=== PATIENT | male | born 1955 | race Caucasian/White ===

== ENCOUNTER 2020-01-25 01:32 | Outpatient (CLI) | payer BC, SELFPAY ==
--- NOTE | 2020-01-25 | DI.MRI_ITS ---
EXAM: MR LUMBAR SPINE WO CLINICAL HISTORY: LOW BACK PAIN, M54.5. TECHNIQUE: Multiplanar multisequence MRI of the Lumbar spine was performed. COMPARISON: No exams were available for comparison FINDINGS: Bones: The last intervertebral disc space is designated the L5/S1 level for the numbering purpose of this examination. The vertebral body heights are well maintained. Alignment is satisfactory. The si gnal characteristics are unremarkable. Cord: The conus tip ends at the T12 level. It is of normal size and signal intensity. T12-L1: No disc herniations or bulges are present. No central spinal canal or neural foraminal stenos is. L1-2: There is a mild diffuse disc bulge. No central spinal canal or neural foraminal stenosis.Endpl ate osteophytes are present. L2-3: No disc herniations or bulges are present. No central spinal canal or neural foraminal stenosis . L3-4: There is a mild diffuse disc bulge. There is mild narrowing of the central spinal canal.No sig nificant neural foraminal stenosis is present. L4-5: There is a diffuse disc bulge. There are hypertrophic changes of the facets and the flavum. T hese all contribute to cause moderately severe central spinal canal stenosis. Mild bilateral neural foraminal stenosis is present. L5-S1: No disc herniations or bulges are present. Degenerative changes of the facets are present.Ther e is mild narrowing of the left neural foramen. No central spinal canal or right neural foraminal st enosis is seen. Soft tissues: The visualized SI joints and sacrum are well maintained. The paraspinal soft tissues ar e unremarkable. IMPRESSION: Multilevel degenerative changes in the lumbar spine. The findings are most marked at the L4-5 disc l evel. DATA REPOSITORY:
== END 2020-01-25 01:52 ==
PROVIDERS: PCP Physician Assistant; Visit Provider Physician Assistant
DX: M54.5 Low back pain (principal); M51.27 Other intervertebral disc displacement, lumbosacral region; M51.37 Other intervertebral disc degeneration, lumbosacral region
CPT/HCPCS: 72148

== ENCOUNTER 2020-06-21 15:10 | Outpatient (REF) | payer BC, SELFPAY ==
[2020-06-26 01:22] LABS: Patient Race White; SARS-CoV-2 Specimen Source Nasal
[2020-06-26 09:46] LABS: SARS-CoV-2 RNA Detected (Undetected)
== END 2020-06-21 15:30 ==
LOC: NCHCN 15:10
PROVIDERS: PCP Physician Assistant; Visit Provider Nurse Practitioner Family
DX: Z20.828 Contact with and (suspected) exposure to other viral communicable diseases (principal)
CPT/HCPCS: U0003

== ENCOUNTER 2021-03-21 15:02 | Outpatient (CLI) | payer BC, SELFPAY ==
--- NOTE | 2021-03-21 | DI.RAD_ITS ---
Exam(s) XR CHEST 2V PA LATERAL EXAM: XR CHEST 2V PA LATERAL CLINICAL HISTORY: COUGH R05 TECHNIQUE: COMPARISON: No exams were available for comparison FINDINGS: Heart is at the upper limits of normal in size. Lungs appear generally clear. No pleural effusion s een. IMPRESSION: No evidence of acute process. RADIATION DOSE DELIVERED: Total DLP
== END 2021-03-21 15:22 ==
PROVIDERS: PCP Physician Assistant; Visit Provider Physician Assistant Medical
DX: R05 Cough (principal)
CPT/HCPCS: 71046

== ENCOUNTER 2021-03-21 15:12 | Outpatient (REF) | payer BC, SELFPAY ==
[2021-03-23 11:08] LABS: COVID-19 RT-PCR UVMMC Result Negative (Negative)
== END 2021-03-21 15:13 | disposition home or self-care (01) ==
LOC: LBN 15:12
PROVIDERS: PCP Physician Assistant; Visit Provider Physician Assistant Medical
DX: Z20.822 Contact with and (suspected) exposure to COVID-19 (principal); R05 Cough
CPT/HCPCS: U0003

== ENCOUNTER 2021-10-13 10:43 | Outpatient (REF) | payer BC, SELFPAY ==
[2021-10-13 20:00] LABS: Abs Immature Grans 0.03 10^3/uL (0.0-0.06); Absolute Basophil Count 0.06 10^3/uL (0.0-0.2); Absolute Eosinophil Count 0.08 10^3/uL (0.0-0.7); Absolute Monocyte Count 0.68 10^3/uL (0.1-0.8); Basophils % 0.5; Eosinophils % 0.7; HCT 51.3 % (40.0-50.0); HGB 16.4 g/dL (13.5-17.5); Immature Grans % 0.3; Lymphocytes % 15.4; MCH 32.9 pg (27.0-33.0); MCV 102.8 fL (80-95); MPV 11.9 fL (8.0-11.0); Monocytes % 6.2; Neutrophils % 76.9; Nucleated RBC 0 %; Platelet Count 228 10^3/uL (130-400); RBC 4.99 10^6/uL (4.36-5.78); RDW 13.6 % (11.8-14.1); RDW-SD 51.9 fL; WBC 11.01 10^3/uL (4.4-10.8)
[2021-10-13 20:06] LABS: Absolute Neutrophil Count 8.47 10^3/uL (1.2-6.7)
[2021-10-13 20:13] LABS: Anion Gap 11.9 mmol/L (3-11); BUN 13 mg/dL (7-18); CO2 25.1 mmol/L (21.0-32.0); Calcium 9.2 mg/dL (8.5-10.1); Chloride 104 mmol/L (98-107); Glucose 97 mg/dL (74-106); Potassium 4.6 mmol/L (3.5-5.1); Sodium 141 mmol/L (136-145)
== END 2021-10-13 10:44 | disposition home or self-care (01) ==
LOC: NCHCN 10:43
PROVIDERS: PCP Physician Assistant; Visit Provider Orthopaedic Surgery Orthopaedic Surgery of the Spine
DX: M48.062 Spinal stenosis, lumbar region with neurogenic claudication (principal)
CPT/HCPCS: 80048; 85025

== ENCOUNTER 2022-05-07 11:44 | Outpatient (CLI) | payer OTHER, SELFPAY ==
--- NOTE | 2022-05-07 11:31 | DI.RAD_ITS ---
Exam(s) XR HIP RT COMPLETE AP PELVIS EXAM: XR HIP RT COMPLETE AP PELVIS INDICATION: pain in hip. COMPARISON: No exams were available for comparison TECHNIQUE: 2D digital imaging was performed. Two views. FINDINGS: Moderate to severe narrowing of both superior hip joint spaces. There is spurring of both acetabula as well as from the margins of both femoral heads. IMPRESSION: Severe degenerative changes of both hips. DATA REPOSITORY: RADIATION DOSE DELIVERED:
--- NOTE | 2022-05-07 11:35 | DI.RAD_ITS ---
Exam(s) XR KNEE RT 3V AP,LAT,MADISON EXAM: XR KNEE RT 3V AP,LAT,MADISON CLINICAL HISTORY: pain in knee. TECHNIQUE: 2D digital imaging was performed. Three views. COMPARISON: No exams were available for comparison FINDINGS: BONES: No acute fracture is present. No bony destructive lesion is seen. JOINTS: Marked narrowing of the medial femoral tibial joint causing varus angulation. Mild to modera te periarticular spurring. Spurring also noted at the patellofemoral joint.. No joint effusion is s een. SOFT TISSUE: Normal. IMPRESSION: Severe degenerative changes of the medial femoral tibial joint. DATA REPOSITORY: RADIATION DOSE DELIVERED:
== END 2022-05-07 11:45 | disposition home or self-care (01) ==
LOC: DIORS 11:44
PROVIDERS: PCP Physician Assistant; Referring Provider Physician Assistant; Visit Provider Physician Assistant Surgical
DX: M16.0 Bilateral primary osteoarthritis of hip (principal); M17.11 Unilateral primary osteoarthritis, right knee
CPT/HCPCS: 73562; 73502

== ENCOUNTER 2022-06-08 08:45 | Outpatient (CLI) | payer OTHER, SELFPAY ==
--- NOTE | 2022-06-08 08:45 | RT.EKG_ITS ---
APPROVED REPORT Exam: Resting ECG Reason for Exam: afib Patient Location: O HR:80 bpm ECG Measurements Heart Rate 80 AXIS ME [id number] P [id number] QRSd 93 QRS 42 QT 367 T -6 QTc 424 Conclusion Atrial fibrillation...V-rate 68- 94, irreg A-activity Poor R wave progression Borderline T abnormalities, inferior leads...T flat/neg, II III aVF
== END 2022-06-08 08:46 | disposition home or self-care (01) ==
LOC: DI.CARD 08:46
PROVIDERS: PCP Physician Assistant; Visit Provider Internal Medicine Cardiovascular Disease
DX: I25.10 Atherosclerotic heart disease of native coronary artery without angina pectoris (principal); I48.91 Unspecified atrial fibrillation
CPT/HCPCS: 93010

== ENCOUNTER 2022-06-18 03:04 | Outpatient (CLI) | payer OTHER, SELFPAY ==
[2022-06-18 11:30] LABS: HCT 49.5 % (40.0-50.0); HGB 16.2 g/dL (13.5-17.5); MCH 33.4 pg (27.0-33.0); MCHC 32.7 % (32.0-36.0); MCV 102 fL (80-95); MPV 10.8 fL (8.0-11.0); Platelet Count 200 10^3/uL (130-400); RBC 4.85 10^6/uL (4.36-5.78); RDW 13.8 % (11.8-14.1); RDW-SD 52.9 fL; WBC 7.11 10^3/uL (4.4-10.8)
[2022-06-18 12:04] LABS: Anion Gap 9.5 mmol/L (3-11); BUN 11 mg/dL (7-18); CO2 25.5 mmol/L (21.0-32.0); CREATININE 1.1 mg/dL (0.70-1.30); Calcium 9.2 mg/dL (8.5-10.1); Chloride 106 mmol/L (98-107); Estimated GFR 74.96 (mL/min/1.73m2); Glucose 111 mg/dL (74-106); Potassium 5.3 mmol/L (3.5-5.1); Sodium 141 mmol/L (136-145)
== END 2022-06-18 03:05 | disposition home or self-care (01) ==
LOC: LBO 03:04
PROVIDERS: PCP Physician Assistant; Visit Provider Student in an Organized Health Care Education/Training Program
DX: M16.11 Unilateral primary osteoarthritis, right hip (principal); Z01.818 Encounter for other preprocedural examination
CPT/HCPCS: 36415; 80048; 85027

== ENCOUNTER 2022-06-23 08:30 | Day surgery (SDC) | payer OTHER, SELFPAY ==
[2022-06-23] VITALS (13 sets, daily range): BP systolic 77–125; BP diastolic 53–94; PULSE 65–87; RESP 16–28; TEMP 36–36.6; O2SAT 94–98
--- NOTE | 2022-06-23 07:28 | ANES.PREOP_ITS ---
General Info Date of Service Date Performed: 06/23/22 Height: 57 ft Weight: 113 kg Body Mass Index (BMI): 0.4 Surgical Procedure: Operation Date: 06/23/22 11:20 Proposed Procedure Side Surgeon p Hip Total Hip Anterior Actis (template Sz 7 High) Right Keon George MD Meds Allergies and Home Medications Allergies Allergy/AdvReac Type Severity Reaction Status Date / Time No Known Allergies Allergy Verified 06/18/22 11:59 Home Medication Medication Instructions Recorded albuterol sulfate 90 mcg/actuation 2 puff inhalation Q6H PRN 03/19/22 aerosol inhaler calcium-magnesium 300 mg-300 mg 1 tab PO DAILY 03/19/22 tablet coenzyme Q10 100 mg capsule (Co 100 mg PO DAILY 03/19/22 Q-10) ezetimibe 10 mg tablet 10 mg PO DAILY 03/19/22 gabapentin 300 mg capsule 300 mg PO TID 03/19/22 hydrocodone 5 mg-acetaminophen 325 1 tab PO DAILY PRN 03/19/22 mg tablet lisinopril 10 mg tablet 5 mg PO DAILY 03/19/22 lorazepam 1 mg tablet 0.5 mg PO QHS PRN 03/19/22 melatonin 3 mg tablet 6 mg PO HS PRN 03/19/22 metoprolol succinate 50 mg 75 mg PO DAILY 03/19/22 tablet,extended release 24 hr naloxone 4 mg/actuation nasal 1 spray intranasal Q2M 03/19/22 spray (Narcan) nitroglycerin 0.4 mg sublingual 0.4 mg sublingual Q5M PRN 03/19/22 tablet rosuvastatin 40 mg tablet (Crestor) 40 mg PO DAILY 03/19/22 sertraline 100 mg tablet 100 mg PO DAILY 03/19/22 sildenafil 25 mg tablet 25 mg PO DAILY PRN 03/19/22 apixaban 5 mg tablet 5 mg PO BID #180 tabs 06/08/22 metoprolol tartrate 25 mg tablet 25 mg PO DAILY 06/18/22 Current Visit Medications: Current Medications Generic Name Dose Route Start Last Admin Trade Name Freq PRN Reason Stop Dose Admin Acetaminophen 1,000 mg 06/23/22 06:00 Acetaminophen 500 Mg Tab PO 06/23/22 16:00 PREOP RAFA Celecoxib 400 mg 06/23/22 06:00 Celecoxib 200 Mg Cap PO 06/23/22 16:00 PREOP RAFA Tranexamic Acid 1,000 mg/ 60 mls @ 360 mls/hr 06/23/22 06:00 Sodium Chloride IV 06/23/22 16:00 PREOP RAFA Ringer's Solution 1,000 mls @ 80 mls/hr 06/23/22 06:00 IV 07/22/22 23:59 INFUSION RAFA Cefazolin Sodium/Dextrose 2 gm in 50 mls @ 100 mls/hr 06/23/22 06:00 Ancef Duplex IVPB 07/22/22 23:59 PREOP RAFA IV Miscellaneous Supplies 1 each 06/23/22 06:00 Iv Access IV 07/22/22 23:59 DIRECTED RAFA Sodium Chloride 0 ml 06/23/22 06:00 Normal Saline Flush 10 Ml Syr IV 07/22/22 23:59 PRN PRN Sodium Chloride 0 ml 06/23/22 06:00 Normal Saline 10 Ml Vial IJ 07/22/22 23:59 DIRECTED PRN Sterile Water 0 ml 06/23/22 06:00 Water,Injection,Sterile 10 Ml Vial IJ 07/22/22 23:59 DIRECTED PRN PFSH Active Problems Active Problems: Problem Status Onset Code Osteoarthritis of right hip M16.11 Osteoarthritis of right knee M17.11 Medical History Medical History Afib Arthralgia CAD (coronary artery disease) COPD (chronic obstructive pulmonary disease) Depression Elevated LFTs Erectile dysfunction ETOH abuse Fractured tibia HTN (hypertension) Insomnia Lumbar spinal stenosis Mixed hyperlipidemia Obesity DOMENICO (obstructive sleep apnea) Osteoarthritis Sciatica Surgical History Surgical History [place] [facility] [place] H/O right inguinal hernia repair History of carpal tunnel surgery of right wrist Status post arthroscopy of right knee Tobacco Smoking/Tobacco Use Status: Former Tobacco Use Substance Use Substance use: Rarely Substance use type: marijuana Vital Signs and Lab Results Vital Signs Most Recent Vital Signs in EMR: Temp Pulse Resp BP Pulse Ox 36.4 C L 65 18 125/92 H 98 06/23/22 09:09 06/23/22 09:09 06/23/22 09:09 06/23/22 09:09 06/23/22 09:09 Lab Results Blood Type / Crossmatch: No Data to Display Complete Blood Count: White Blood Count 7.11 10^3/uL (4.4-10.8) 06/18/22 11:20 Red Blood Count 4.85 10^6/uL (4.36-5.78) 06/18/22 11:20 Hemoglobin 16.2 g/dL (13.5-17.5) 06/18/22 11:20 Hematocrit 49.5 % (40.0-50.0) 06/18/22 11:20 Platelet Count 200 10^3/uL (130-400) 06/18/22 11:20 Complete Metabolic Panel: Sodium 141 mmol/L (136-145) 06/18/22 11:20 Potassium 5.3 mmol/L (3.5-5.1) H 06/18/22 11:20 Chloride 106 mmol/L (98-107) 06/18/22 11:20 Carbon Dioxide 25.5 mmol/L (21.0-32.0) 06/18/22 11:20 BUN 11 mg/dL (7-18) 06/18/22 11:20 Creatinine 1.1 mg/dL (0.70-1.30) 06/18/22 11:20 Est GFR (CKD-EPI 2020) 74.96 (mL/min/1.73m2) 06/18/22 11:20 Calcium 9.2 mg/dL (8.5-10.1) 06/18/22 11:20 Glucose 111 mg/dL (74-106) H 06/18/22 11:20 Liver Function Panel: No Data to Display Coagulation Panel: No Data to Display Cardiac Panel: No Data to Display Arterial Blood Gas: No Data to Display Venous Blood Gas: No Data to Display Pancreas Panel: No Data to Display Thyroid Panel: No Data to Display Infectious Disease: No Data to Display Blood Cultures: No Data to Display Toxicology Panel: No Data to Display Imaging and Studies Imaging and Studies Study information below may be from another EMR and interpreted by another provider. Please see original notes in EMR for more complete details. EKG Summary: 06/06: afib, poor r wave progression. Echocardiogram Summary: 01/2020: LVEF 53%, normal rv fxn, mild-mod MR. Cardiac Catheterization Summary: 01/26/2020: LM mild. LAD mild, proximal 50% diffuse, hazy with ca. LCx mild diffuse, RCA prox 55% diffuse, mid 35% diffuse, CORRINE con 95% prox stented. Anesthesia Assessment and Plan Anesthesia History Personal History: No History of Anesthesia Complications Family History: No Family History of Anesthesia Complications Exercise Tolerance Exercise Tolerance: Metabolic Equivalents>4 Cardiac & Pulmonary Exam Cardiac Exam: Normal S1/S2 Heart Sounds Pulmonary Exam: Clear Bilateral Breath Sounds Implantable Cardiac Device Does patient have a Pacemaker or an ICD?: No Airway Exam Known Difficult Airway: No Mallampati Class: 3 Mouth Opening: Normal (> 3cm) Thyromental Distance: Less than 3 cm Neck Range of Motion: Limited ROM Neck Circumference: Thick Teeth Condition: Normal Dentition ASA Classification ASA Score: ASA 3 Emergency Case?: No NPO Status NPO Status: NPO Clears >2 hours, Solids >8 hours Anesthesia Plan Resuscitation Status: Full Code Anesthesia Technique: General Anesthesia Airway Planned: Endotracheal Tube Monitors Used: Standard Monitors Preoperative Comments:: 67 yo male for [place]. Sig PMHx: HTN, afib (metoprolol, eliquis (last dose ~60 hrs ago), CAD (STEMI -> JOSE ALEJANDRO RCA stent 2019, denies routine NTG use), COPD , DOMENICO, elevated BMI, former smoker, occ cannabis. Previous anes: - mac 4 grade 2a, masked with OPA
[2022-06-23] MEDS: Celecoxib 200 MG CAP 400 MG PO (09:26)
[2022-06-23] MEDS: Acetaminophen 500 MG TAB 1000 MG PO ×2 (09:27→14:58)
[2022-06-23] MEDS: Lactated Ringers 1,000 ML 80 ML IV (09:40)
[2022-06-23] MEDS: ceFAZolin 2 GM/50 ML BAG IVPB (10:45)
--- NOTE | 2022-06-23 12:11 | DI.RAD_ITS ---
Exam(s) XR HIP RT IN OR EXAM: XR HIP RT IN OR CLINICAL HISTORY: right total hip TECHNIQUE: 2D and realtime digital imaging was performed. CONTRAST MATERIAL: Refer to procedure report. COMPARISON: No exams were available for comparison FINDINGS: Fluoroscopy was provided for Dr. George during the performance of a right hip arthroplasty. Judith broderick refer to the procedure report for complete details. Ka,r=8.8 mGy IMPRESSION: RADIATION DOSE DELIVERED:
--- NOTE | 2022-06-23 13:00 | W.ANESPOSTOP ---
Postoperative Evaluation Date, Time and Location Date Performed: 06/23/22 Time Performed: 13:00 Patient Location: PACU Vital Signs Most Recent Imported Vital Signs: Most Recent Vital Signs Temp Pulse Resp BP Pulse Ox 36.3 C L 79 22 81/53 L 96 06/23/22 12:46 06/23/22 12:46 06/23/22 12:46 06/23/22 12:46 06/23/22 12:46 Pain Score Most Recent Pain Score: Most Recent Pain Score Pain Level 7 06/23/22 12:46 Assessment Mental Status: Awake (Alert & Oriented to Patient Baseline) Airway and Respiratory Function: Patent airway with normal (patient baseline) respiratory exam Cardiovascular Function: Hemodynamically Stable Hydration Status: Adequately Hydrated Nausea & Vomiting: No Nausea or Vomiting Pain: Pain is tolerable per patient Peripheral Nerve Block: Patient did not receive a nerve block Postoperative Comments:: phenyl gtt started for low MAP.
[2022-06-23] MEDS: HYDROmorphone 2 MG/ML SYR IVP ×2 (13:06→14:11)
[2022-06-23] MEDS: Normal Saline Flush 10 ML SYR IV (13:07)
--- NOTE | 2022-06-23 14:11 | PDOC.ANES ---
Date of service: 06/23/22 Time of Service: 14:11 Anesthesia Note Report Anesthesia Note: Called by PHARMACY HELPER to evaluate IV in left hand. IV is flowing, but above where the catheter ends is swollow, blanched. No blood return noted on aspiration of IV. an unknown amount of fluid and phenylephrine infiltrated. given the blanched skin and infiltration of phenyl, phentolamine was ordered. A new IV was placed in the left AC. the right wrist infiltration was infiltrated with phentolamine. Skin does appear to be less blanched at this time. Pt was educated on the effects of IV infiltration and risk of necrosis given the phenylephrine.
--- NOTE | 2022-06-23 14:12 | W.PM.DS.N ---
Date of service: 06/23/22 Time of Service: 14:12 DS: Diagnosis Discharge Diagnosis (1) Osteoarthritis of right hip: Status: Acute Discharge Plan Disposition Patient Disposition: HOME Condition: Good Discharge Details Reason For Visit: Right hip DJD Attending Provider: Keon George Primary Care Provider: Sukumar Sahu Home Meds and New Rx's Prescriptions: New acetaminophen 500 mg tablet 500 mg PO Q6H PRN (Reason: pain) Qty: 60 2RF docusate sodium [Colace] 100 mg capsule 100 mg PO BID Qty: 30 0RF hydrocodone-acetaminophen 5-325 mg tablet 1 tab PO Q6H PRN (Reason: severe pain) Qty: 12 0RF Rx Instructions: Take one tablet up to every 6 hours as needed for severe postoperative pain meloxicam 15 mg tablet 15 mg PO DAILY Qty: 30 1RF Rx Instructions: Take one tablet daily for pain and inflammation pantoprazole 40 mg tablet,delayed release (DR/EC) 40 mg PO DAILY 30 Days Qty: 30 0RF dexamethasone 4 mg tablet 4 mg PO DAILY Qty: 2 0RF Rx Instructions: Take one tablet once daily for two days Continued apixaban 5 mg tablet 5 mg PO BID Qty: 180 4RF metoprolol tartrate 25 mg tablet 25 mg PO DAILY sertraline 100 mg tablet 100 mg PO DAILY lorazepam 1 mg tablet 0.5 mg PO QHS PRN lisinopril 10 mg tablet 5 mg PO DAILY metoprolol succinate 50 mg tablet extended release 24 hr 75 mg PO DAILY ezetimibe 10 mg tablet 10 mg PO DAILY gabapentin 300 mg capsule 300 mg PO TID nitroglycerin 0.4 mg tablet, sublingual 0.4 mg sublingual Q5M PRN Rx Instructions: do not exceed 3 doses per episode coenzyme Q10 [Co Q-10] 100 mg capsule 100 mg PO DAILY calcium-magnesium 300-300 mg tablet 1 tab PO DAILY Rx Instructions: administer with a meal albuterol sulfate 90 mcg/actuation HFA aerosol inhaler 2 puff inhalation Q6H PRN rosuvastatin [Crestor] 40 mg tablet 40 mg PO DAILY sildenafil 25 mg tablet 25 mg PO DAILY PRN Rx Instructions: administer 30 minutes to 4 hours before activity naloxone [Narcan] 4 mg/actuation spray,non-aerosol 1 spray intranasal Q2M Rx Instructions: spray 1 dose into ONE nostril; alternate nostrils w each dose until help arrives melatonin 3 mg tablet 6 mg PO HS PRN Discontinued hydrocodone-acetaminophen 5-325 mg tablet 1 tab PO DAILY PRN Discharge Instructions Additional Instructions: Total Hip Discharge Instructions Activity: The most important activity is to walk. You should try to take short walks a few times a day. You have no restrictions on movement or positioning, but do not try to force what you do. You will find some stiffness and weakness with hip flexion (lifting your knee). Do not try to strengthen this too early, continue to practice walking and stairs and this will come. - Outpatient physical therapy can be helpful to help return you to a normal gait and improve your flexibility and strength. This can start around 2 weeks. For some patients, it?s not necessary. Usually this is determined at the time of discharge or at the first post-operative visit. - You should wear the CHERYL hose on both legs for 2 weeks. Dressing: Keep the surgical dressing in place for at least one week. After the first week it may be removed and replace with light gauze and tape or nothing. It may get wet after 3 days but avoid soaking the dressing. If it gets wet, just lightly pat dry. It is important to always keep some gauze between skin folds, especially when you are sitting. Spend some time with the wound exposed when you are lying flat as the incision does wrinkle onto itself. Medications: - You should take Tylenol and an anti-inflammatory Meloxicam as your primary pain control medications. If the Meloxicam is too expensive or not covered, please call the office for another alternative (Advil/Ibuprofen or Naproxen/Aleve). - You have been prescribed a stronger pain medication Hydrocodone for breakthrough pain, take as needed as prescribed. - You have also been prescribed a stomach acid reduction agent Pantoprozole to help reduce stomach acid and reflux. - You have also been prescribed Decadron to help with post-operative nausea and pain. You will take this for two days starting tomorrow. - You will be taking your baseline Eliquis for DVT prevention. - If you have constipation you should take Colace (which has been prescribed) or Miralax (which is available for purchase [id number]). It takes most people 3-4 days to have a bowel movement. Follow-up: 2 weeks If you have any acute concerns or questions, please do not hesitate to contact the office at [phone]. You may contact Dr. George with any questions after hours through the hospital at [phone] or on his cell phone at [phone]. Referrals: Keon George MD [ [facility] STAFF PHYSICIAN] - Equipment/Supplies: Walker Activity:: Activity as Tolerated Remove Dressings/Wound Care:: Do Not Remove Shower/Bathe:: Cover Diet:: As Tolerated Discharge Orders Discharge Orders: Discharge Order (Routine); Ordered 06/23/22 Ordered By: Keon George DS: Summary Time Spent with Patient providing and/or coordinating discharge services: Less than 30 minutes Status at Discharge Functional status at discharge: uses cane/walker Overall status at discharge: patient is progressing back to baseline Mental Status: mental status grossly normal Speech and Movement: speech and movement normal Mood: congruent mood Affect: normal affect Exam Psych Mental Status: mental status grossly normal Speech and Movement: speech and movement normal Mood: congruent mood Affect: normal affect DS: Data Vitals/I&O Vitals and I&O: Vital Signs Temperature 97.9 F 06/23/22 13:56 Pulse 74 06/23/22 13:56 Pulse Rhythm Irregular 06/23/22 09:09 Respiratory Rate 21 06/23/22 13:56 Respiratory Depth Normal 06/23/22 09:09 Blood Pressure 117/94 H 06/23/22 13:56 Pulse Oximetry 94 06/23/22 13:56 Respiratory End-tidal CO2 36 06/23/22 13:56 Oxygen Delivery Method Room Air 06/23/22 13:56 Oxygen Flow Rate 2 06/23/22 13:11 Pain Level 7 06/23/22 13:56 Intake & Output 06/22/22 06/23/22 06/23/22 23:59 11:59 23:59 Intake Total 110 / 778.81 668.81 / 778.81 Output Total 500 / 500 Balance 110 / 278.81 168.81 / 278.81 Weight 249 lb 1.957 oz Intake: IV 110 / 528.81 418.81 / 528.81 Oral 250 / 250 Output: Estimated Blood Loss 500 / 500 Other: Emesis Description None Voiding Methods [facility] Active Problems Osteoarthritis of right hip (Acute) Osteoarthritis of right knee (Acute) DEPO MEDROL 05/07/22 Medical History Afib Arthralgia CAD (coronary artery disease) COPD (chronic obstructive pulmonary disease) Depression Elevated LFTs Erectile dysfunction ETOH abuse Fractured tibia HTN (hypertension) Insomnia Lumbar spinal stenosis Mixed hyperlipidemia Obesity DOMENICO (obstructive sleep apnea) Osteoarthritis Sciatica Surgical History H/[place] [facility] [place] H/O right inguinal hernia repair History of carpal tunnel surgery of right wrist Status post arthroscopy of right knee Social History Smoking/Tobacco Use Status: Former Tobacco Use Smoking risk assessment performed?: Yes Drug use: Rarely Substance use type: marijuana Do you feel safe at home: Yes Do you feel safe in your relationship?: Yes
--- NOTE | 2022-06-23 15:12 | IN_ITS ---
PT Notes Visit Reasons: Right hip DJD Physical Therapy Day Surgery Initial Evaluation Date: 06/23/2022 Referring Doctor: DAMARIS Do PT Orders: PT CONSULT: S/P Ortho Surgery Precautions: WBAT on R LE with AD. Patient Profile/Admitting Diagnosis: Ramírez is a 67-year-old male with degenerative joint disease of the right hip and is status post right anterior total hip arthroplasty on postoperative day 0. PMHX: Medical History? Afib Arthralgia CAD (coronary artery disease) COPD (chronic obstructive pulmonary disease) Depression Elevated LFTs Erectile dysfunction ETOH abuse Fractured tibia HTN (hypertension) Insomnia Lumbar spinal stenosis Mixed hyperlipidemia Obesity DOMENICO (obstructive sleep apnea) Osteoarthritis Sciatica Surgical History?(Updated 06/18/22 @ 11:54 by Laurita Farley) [place] [facility] [place]/O right inguinal hernia repair History of carpal tunnel surgery of right wrist Status post arthroscopy of right knee Social History/Home Situation: Lives with in a private home with a ramp to enter. Will have good support from family members and neighbors as he recovers. Equipment Owned/DME: [facility], S[facility] Subjective: Reports 3/10 pain in the R hip at rest. Denies headache, chest pain, and lightheadedness throughout session. Denies pain in back. Did complain of pain in B knees which he hopes to have surgery for in the coming months. Objective: General Observation: Supine with HOB elevated in stretcher. Mepilex Ag over surgical incision. High BMI. Hears better through the L ear. Mental Status: A and O x 4 Pain: 3-4/10 in the R hip with weight bearing ROM: Right Lower Extremity: Hip flexion lacks the last 25% of AROM due to discomfort and abdominal pannus. Hip abduction WFL. Knee flexion WFL. Ankle dorsiflexion WFL. Ankle plantarflexion WFL. Left Lower Extremity: Hip flexion WFL. Hip abduction WFL. Knee flexion WFL. Ankle dorsiflexion WFL. Ankle plantarflexion WFL. Strength: Right Lower Extremity: Hip flexors 3-/5. Hip abductors 4-/5. Knee flexors 5/5. Knee extensors 4-/5. Ankle dorsiflexors 5/5. Ankle plantarflexors 5/5. Left Lower Extremity:Hip flexors 4/5. Hip abductors 5/5. Knee flexors 5/5. Knee extensors 5/5. Ankle dorsiflexors 5/5. Ankle plantarflexors 5/5. Sensation: Intact as to pain and light pressure in B LE Bed Mobility/Transfers: Supine to sit stand by assist Sit to stand contact guard assist Stand to sit contact guard assist Bed to chair stand by assist Gait: 150 feet of level surface ambulation using front-wheeled walker with step-to gait pattern requiring standby assist. Verbal cues given for pain-free trunk extension as patient tends to bend forward. indicates that patient has lumbar spinal stenosis. THERA EX: Ankle PF/DF x 10 Gluteal sets x 10 Quadriceps sets x 10 Supine hip abduction to pain-free range x 10 Heels slides x 10 Balance: Static Sitting: Normal Dynamic Sitting: Normal Static Standing: Fair Dynamic Standing: Fair Special Tests: Mobility Limitations Standardized Measure [facility] AM-PAC 6 clicks Basic Mobility Inpatient Short Form: Raw Score: 22 CMS Score: 21 % deficit Informed Consent/Education: Patient instructed in purpose of PT consult. Education and training on initial set of exercises that can be done at home have been completed with patient with reference to the [employer]. Assessment: Ramírez requires the use of a front wheeled walker for all mobility ADL performance started to reduce fall risk and maximize independence. Patient presents with clinical signs and symptoms consistent with current/admitting diagnoses that have resulted to mobility limitations, gait instability, generalized weakness, and impairment of motor control as demonstrated by the following impairment level findings: 1. Decreased strength to R hip major muscle groups 2. Impaired standing balance 3. Limitation of joint range of motion in B hips with R<< hip Impairments are contributing to the following functional limitations: 1. Inability to safely ambulate without assistive device 2. Increase completion time for mobility ADL performance 3. Increased fall risk Patient is assessed as a 62978 moderate complexity based on the following: History: 67-year-old male with impairment level findings, functional limitations, and past medical history as indicated above Examination: Demonstrable impairment in strength, balance, and mobility level with underlying impairments and functional limitations as documented above Presentation: Evolving Decision Makin moderate complexity Goals: N/A. PT evaluation and 1-2 treatment sessions only for functional mobility training using recommended AD and for HEP instruction. Plan of Care/Treatment Plan: N/A. PT evaluation and 1-2 treatment session only for functional mobility training using recommended AD and for HEP instruction. DISCHARGE RECOMMENDATIONS: [] Home with no services [] [] Home with services [specify] [X] Home with outpatient PT. Home when medically cleared by orthopedic surgeon. Will benefit from outpatient PT services in order to optimize functional mobility outcomes and facilitate independent community ambulation wit hout an assistive device. [] SNF for continued rehabilitation [] [] Custodial Care [] [] SNF versus LTC based on ability to participate and progress [] TREATMENT CODE/TIME: 79157 x 20 minutes, 64999 x 18 minutes beginning at 15:12 PM. Thank you for the opportunity to participate in the care of this patient. Yolanda Stephens PT, DPT, CLT [facility] [place], [place]
--- NOTE | 2022-06-23 22:30 | ROE_ITS ---
Date of service: 06/23/22 Time of Service: 12:20 Operative Note Operative Note DATE OF PROCEDURE: 06/23/22 PRE-OP DIAGNOSIS: Right Hip Osteoarthritis POST-OP DIAGNOSIS: same PROCEDURE: Right Anterior Total Hip Arthroplasty with Intraoperative Navigation SURGEON: Keon George ACCOUNTING MANAGER CPA: Laurita Farley ANESTHESIA TYPE: General LMA/ETT Refer to Anesthesia Record ESTIMATED BLOOD LOSS: 500 PATHOLOGY: none sent TOURNIQUET TIME: 0 COMPLICATIONS: Other (Small cortical defect of posterior calcar, likely from retractor but not unstable) Patient was transported to: PACU Patient's condition: stable Implants: 1. Depuy Eastlake Acetabular Component, 58mm 2. Depuy Acetabular Liner, [id number] 3. Depuy Actis Standard Collared Femoral Stem, Size 6 4. Depuy Altrx Ceramic Femoral Head, Size 36+5mm Indications: I have seen Jordan in clinic for symptoms of hip arthritis, confirmed with radiographic findings. Jordan has exhausted nonoperative methods and was having significant limitations in daily function and desired better function and less pain. I discussed the technical details of a hip replacement. I explained the risks of the procedure to include, but not limited to, bleeding, infection, pain, stiffness, fracture, damage to nerves and vessels, damage to muscles and tendons, loosening, instability, leg length inequality, need for repeat procedure, blood clot and cardiopulmonary demise. Despite these risks, Jordan elected to proceed. Findings: There was significant signs of arthritis throughout the hip. Procedure Description: Jordan was greeted in the preoperative holding area where the correct side was identified and marked. The consent was reviewed with the patient and signed. The history and physical was updated. All questions were answered. Jordan was taken back to the operating room. A spinal anesthestic was then administered. The feet were wrapped with cast padding and Coban and then placed into the boot liners and then into the boots. Care was taken to protect the skin and make sure the heels were fully down and the boots were stable. The patient was then positioned onto the HANA table. Both legs were held in a neutral position. SCDs were applied. The patient was then slid down onto a peroneal post. Prophylactic antibiotics in the form of Cefazolin were administered. 1g of Tranxemic Acid was given intravenously within 30 minutes of incision. The right leg was then prepped with Chloraprep and draped in a standard fashion. A second prep with Chloraprep was performed prior to placement of a shower-curtain type drape with Iodine impregnated skin protection. A timeout to confirm correct identity, side and site, procedure, allergies, anesthesia, and medical concerns was performed. An obliquely oriented incision was made starting lateral to the ASIS and running distal over the Tensor Fascia Marisela (TFL) muscle belly toward the fibular head, approximately 10cm. The skin and soft tissue was dissected sharply, through Gilson?s fascia, and to the fascia of the TFL. With the fascia and superior border of the IT band identified, the fascia was incised with a new knife just above any perforators from the IT band. The TFL muscle belly was bluntly dissected away from the fascia and moved laterally. The fat between TFL and rectus was identified to ensure the dissection was not within the TFL. Blunt d issection created space between abductors and the capsule and retractor was placed over the lateral femoral neck. The fibers of the rectus femoris tendon were identified and these were freed from the anterior capsule. A second cobra retractor was placed around the medial femoral neck. The TFL was further retracted laterally to show the deep fascia. Careful dissection through this layer identified three main crossing vessels of the lateral femoral circumflex. These were cauterized in multiple locations and then cut without any noticeable bleeding. The TFL was further released bluntly from the deep fascia to expose anterior hip capsule and fat The David orthopaedic retractor was then placed beneath the TFL and against sartorius and medial soft tissues to protect and retract the soft tissues. A T-capsulotomy was then performed starting at the superior lateral acetabulum and moving distally to the intertrochanteric ridge. These capsular flaps were tagged with a No. 1 Ethibond and elevated from within. The capsular flaps were released to the shoulder of the lateral neck and to the lesser trochanter to give excellent visualization of the proximal femur. A neck osteotomy was performed using an oscillating saw based on preoperative templates. This cut started in the shoulder and of the lateral neck and exited medially. The saw was at all times directed medially to avoid injury to the greater trochanter. Gross traction was applied to the leg and the osteotomy opened. The femoral head was removed with a corkscrew, making sure to protect the TFL on its exit. Traction was released after head removal. This was measured on the back table to determine the starting reamer size. Portions of the rectus obscuring visualization were minimally elevated off the superior acetabulum. An anterior retractor was placed over the anterior wall between capsule and labrum and attached to the Gripper retraction system. The femur was rotated to 90 degrees and medial capsule was fully released until the lesser trochanter was palpable and visible; the femur was returned to 30 degrees. A posterior retractor was placed similarly between capsule and labrum. This provided excellent visualization. The contents of the cotyloid fossa were removed with electrocautery and the labrum was removed with a knife. There was a notable floor osteophyte. There was significant chondromalacia of the superior acetabulum. Acetabular reaming began with a 54mm reamer. This first reaming was directed anterior to posterior and medial to get down to the true floor. This was inspected and reamed until the true floor was reached. The anterior retractor was then released and entry and exit was provided by traction on the capsular flaps. I then reamed sequentially up to a 58mm reamer where good fit was obtained. The larger reamers were oriented based on anatomical reference of the anterior and lateral sanabria to ensure proper abduction and anteversion. Positioning and size was confirmed with the fluoroscopy. A 58mm Depuy Eastlake acetabular component was selected. The acetabulum was reamed around the periphery with the selected acetabular size to prevent a rim fit. The deep tissues were irrigated. The acetabular component was then impacted in a position of about 40-45 degrees of abduction and 15-20 degrees of anteversion, using the patient?s anatomy as the ultimate landmark. Fluoroscopy was used to confirm this. There was excellent medical billing and coding instructor of the acetabular component and the inserting handle was removed. The acetabular liner, Depuy [id number] polyethylene liner, was inserted and lined up with the tines of the acetabular component. There was no soft tissue interposition. The liner was then impacted into position and confirmed to be well-seated. A portion of the richar-articular cocktail was then injected around the acetabulum into the capsule and periosteum. This cocktail consisted of 123mg of Ropivacaine, 0.25mg of Epinephrine, 0.04mg of Clonidine, and 15mg of Ketorolac, diluted to 50cc. The leg was rotated to 120 degrees. Any remaining medial capsule was released until the lesser trochanter was easily palpable. A retractor was placed medially. The lateral capsule was further released into the shoulder to allow access to the greater trochanter. A Swift retractor was placed over the greater trochanter which allowed the trochanter to flip in front of the capsule for excellent exposure. The leg was brought down into maximal extension and 20 degrees of adduction while ensuring there was no impingement on the acetabulum. Any remnant capsule within the trochanter was released. Piriformis and obturator externis were identified and protected. There was excellent access to the proximal femur. The lateral neck remnant was removed with a rongeur. A blunt canal probe was used to identify the canal and trajectory for later broaching. A box osteotome initiated the broach course. A small curved rasp and a curved curette were used to work laterally. Broaching then began with a size 8 Corail broach. This was inserted manually around the trochanter and into the canal before mallet blows. The broach was seated to the neck cut level based on the neck cut and the preoperative template. Sequential broaching was continued until a tight fit was obtained with good rotational control of the femur. During broaching there was a crack, defect noted over the posterior cortex. There was noted to be a small defect in the posterior cortex which appeared to be from the retractor. It was fully inspected and did not show any instability nor any displcement of the fracture. A trial standard neck was inserted along with a +5 trial head. The leg was brought out of extension and adduction and then reduced with traction and internal rotation. The leg was stable anteriorly in a position of 30 degrees of extension and 90 degrees of external rotation. Fluoroscopy was used to ensure there was no fracture and the stem was seated well. Leg lengths were checked with an AP pelvis and pelvic reference points. [employer] navigation system was used to confirm appropriate positioning and leg length and offset. Once content with the desired offset and leg lengths, the leg was brought back into extension, external rotation and adduction. The periosteum and surrounding tissue was injected with remaining portion of the richar-articular cocktail. The proximal femur was irrigated as well as the deep tissues. The Depuy Actis collared stem, size 6, was then manually inserted into the proximal femur making sure to control rotation. It was then malleted into position with light blows, giving breaks to allow bone expansion and decrease risk of fracture. The selected Depuy Altrx Ceramic Head, size 36+5mm, was then placed onto the clean and dry trunnion and secured with impaction onto the tapered fit. The leg was brought back out of extension and adduction and reduced with traction and internal rotation. Stability was confirmed with no shuck at 90 degrees of external rotation and 30 degrees of extension. No impingement through range of motion arc. Final x-ray images were obtained with fluoroscopy to confirm adequate positioning. The deep tissues were thoroughly irrigated with Surgiphor, betadine solution. This was allowed to sit in the wound for 3 minutes before being thoroughly irrigated out with normal saline. The capsule was then reapproximated with the previously placed Ethibond sutures. The TFL fascia was finally closed with a No. 2 Stratafix, barbed suture. Deep tissues were then reapproximated with 0 Vicryl and a running 2-0 Vicryl. The skin was closed with a running 4-0 Monocryl in a subcuticular fashion. This was reinforced with skin glue. A Mepilex silver dressing was applied. At the end of the case, all counts were correct. Jordan was transferred to the hospital bed without difficulty. Jordan has a good prognosis. Physical therapy will start today and without restrictions, weight-bearing as tolerated. His home dose of Eliquis BID will be used for DVT prophylaxis.
== END 2022-06-23 16:52 | disposition home or self-care (01) ==
PROVIDERS: PCP Physician Assistant; Visit Provider Student in an Organized Health Care Education/Training Program
PROC: (CPT 27130; principal; 2022-06-23 11:00)
DX: M16.11 Unilateral primary osteoarthritis, right hip (principal); J44.9 Chronic obstructive pulmonary disease, unspecified; G47.33 Obstructive sleep apnea (adult) (pediatric); F10.10 Alcohol abuse, uncomplicated; I48.91 Unspecified atrial fibrillation
CPT/HCPCS: 27130; 20985; 97162; 97530; J2760; 73501; J0690; J1100; J1170; J2370; J2405; J2704

== ENCOUNTER 2022-07-06 11:11 | Outpatient (CLI) | payer OTHER, SELFPAY ==
--- NOTE | 2022-07-06 10:45 | DI.RAD_ITS ---
Exam(s) XR HIP RT COMPLETE AP PELVIS EXAM: XR HIP RT COMPLETE AP PELVIS INDICATION: 1ST POST OP R [place]. COMPARISON: CR XR HIP RT COMPLETE AP PELVIS from 05/07/2022 XA XR HIP RT IN OR from 06/23/2022 TECHNIQUE: 2D digital imaging was performed. Two views. FINDINGS: There has been no change in the alignment of the right hip prosthesis. No suspicious surrounding bon y lucencies. Advanced degenerative changes of the left hip are noted. DATA REPOSITORY: RADIATION DOSE DELIVERED:
== END 2022-07-06 11:12 | disposition home or self-care (01) ==
LOC: DIORS 11:12
PROVIDERS: PCP Physician Assistant; Referring Provider Physician Assistant; Visit Provider Student in an Organized Health Care Education/Training Program
DX: Z96.641 Presence of right artificial hip joint (principal)
CPT/HCPCS: 73502

== ENCOUNTER 2023-06-25 09:08 | Outpatient (CLI) | payer OTHER, SELFPAY ==
--- NOTE | 2023-06-25 09:17 | DI.RAD_ITS ---
Exam(s) XR HIP RT AP LAT ONLY EXAM: XR HIP RT AP LAT ONLY CLINICAL HISTORY: ANNUAL F/U R [place]. TECHNIQUE: 2D digital imaging was performed. COMPARISON: CR XR HIP RT COMPLETE AP PELVIS from 07/06/2022 FINDINGS: Two views There is stable position alignment of the components of the right hip prosthesis. No fracture or loo sening evident. Vascular calcification in the right femoral artery again noted. IMPRESSION: Stable satisfactory appearance of right hip prosthesis. DATA REPOSITORY: RADIATION DOSE DELIVERED:
== END 2023-06-25 09:09 | disposition home or self-care (01) ==
LOC: DIORS 09:08
PROVIDERS: PCP Physician Assistant; Referring Provider Physician Assistant; Visit Provider Student in an Organized Health Care Education/Training Program
DX: Z96.641 Presence of right artificial hip joint (principal); Z01.818 Encounter for other preprocedural examination
CPT/HCPCS: 73502

== ENCOUNTER 2024-06-05 09:09 | Outpatient (CLI) | payer OTHER, SELFPAY | END 2024-06-05 09:10 | disposition home or self-care (01) | LOC: DI.CARD 09:09 | PROVIDERS: PCP Physician Assistant; Visit Provider Internal Medicine Cardiovascular Disease | CPT/HCPCS: 93010 ==

== ENCOUNTER 2025-03-06 11:11 | Outpatient (CLI) | payer OTHER, SELFPAY ==
--- NOTE | 2025-03-06 09:45 | DI.RAD_ITS ---
Exam(s) XR HIP LT COMPLETE AP PELVIS EXAM: XR HIP LT COMPLETE AP PELVIS CLINICAL HISTORY: L HIP PAIN. TECHNIQUE: 2D digital imaging was performed of the left hip. Two views were obtained. AP pelvis and lateral left hip views were obtained. COMPARISON: CR XR HIP RT COMPLETE AP PELVIS from 07/06/2022 CR XR HIP RT AP LAT ONLY from 06/25/2023 FINDINGS: BONES: No acute fracture is present. No bony destructive lesion is seen. JOINTS: No dislocation present. The right total hip arthroplasty appears grossly unremarkable on this single AP image. There is marked narrowing of the superior joint space of the left hip. Osteophytes are seen on both the acetabulum and the femoral head. There is prominence of the bone at the junction of the head and neck of the left femur which can be seen with femoral acetabular impingement. SOFT TISSUE: There are atherosclerotic calcifications present. IMPRESSION: Marked degenerative changes seen in the left hip as described above. DATA REPOSITORY: RADIATION DOSE DELIVERED:
== END 2025-03-06 11:12 | disposition home or self-care (01) ==
LOC: DIORS 11:12
PROVIDERS: PCP Physician Assistant; Visit Provider Physician Assistant
DX: M25.552 Pain in left hip (principal); M16.12 Unilateral primary osteoarthritis, left hip
CPT/HCPCS: 73502